=== PATIENT | male | born 1970 | race Caucasian/White ===

== ENCOUNTER 2019-01-14 20:15 | Emergency (ER) | payer SELFPAY ==
[~2019-01-14] VITALS: Ht 190.5 cm; Wt 100.0 kg
[2019-01-14 20:25] VITALS: Ht 190.5 cm; Wt 100.0 kg
[2019-01-14] MEDS ORDERED: CLEOCIN HCL300 MG PO (21:43)
[2019-01-14] MEDS ORDERED: TORADOL10 MG PO (21:43)
[2019-01-14 22:15] VITALS: BP 145/78
== END 2019-01-14 22:18 | disposition home or self-care (01) ==
LOC: D.ER 20:15
DX: K08.89 Other specified disorders of teeth and supporting structures (principal); M54.2 Cervicalgia

== ENCOUNTER 2019-04-08 02:04 | Emergency (ER) | payer SELFPAY ==
[~2019-04-08] VITALS: Ht 190.5 cm; Wt 99.8 kg
[~2019-04-08 02:04] MED LIST: CLEOCIN HCL300 MG PO; TORADOL10 MG PO
[2019-04-08 02:14] VITALS: Ht 190.5 cm; Wt 99.8 kg
[2019-04-08] MEDS ORDERED: STERAPRED DS 1010 MG PO (03:21)
[2019-04-08] MEDS ORDERED: NAPROSYN500 MG PO (03:21)
[2019-04-08 03:30] VITALS: BP 123/79
== END 2019-04-08 03:30 | disposition home or self-care (01) ==
LOC: D.ER 02:04
DX: S39.012A Strain of muscle, fascia and tendon of lower back, initial encounter (principal); X50.0XXA Overexertion from strenuous movement or load, initial encounter; Y93.89 Activity, other specified; Y92.89 Other specified places as the place of occurrence of the external cause